=== PATIENT | female | born 1985 | race Caucasian/White ===

== ENCOUNTER → 2025-01-07 | Emergency (ER) | payer OTHER ==
[~2025-01-07] VITALS: Ht 167.6 cm; Wt 104.3 kg
[~2025-01-07] MED LIST: BUSPIRONE HCL7.5 MG PO
== END | disposition home or self-care (01) ==
LOC: ER 12:21
DX: S61.452A Open bite of left hand, initial encounter (principal); T78.40XA Allergy, unspecified, initial encounter; W64.XXXA Exposure to other animate mechanical forces, initial encounter; Y93.89 Activity, other specified; Y92.89 Other specified places as the place of occurrence of the external cause; Y99.8 Other external cause status; R21 Rash and other nonspecific skin eruption